=== PATIENT | male | born 1935 | race Two or more races ===

== ENCOUNTER 2019-04-25 06:59 | Emergency (ER) | payer MEDICARE, MEDICAID ==
[~2019-04-25] VITALS: Ht 180.3 cm; Wt 70.3 kg
[2019-04-25] MEDS ORDERED: LIDOCAINE 2% JEL UROJET 10 ML MM ONE ×4 (07:02→08:30)
--- NOTE | 2019-04-25 07:20 | NUR ---
[facility] FROM [facility] FOR EVALUATION OF BLOOD IN THE F/C. PT REPORTED HE HAS F/C IN AT ALL TIME DUE TO CHRONIC URINARY RETENTION. HE ENDORSED THAT THE F/C WAS CHANGED AT THE FACILITY YESTERDAY. PT CURRENTLY W/ C/O LOWER ABD PAIN AND INABILITY TO URINATE. VS OBTAINED. WILL CONT TO MONITOR.
[2019-04-25] MEDS ORDERED: MORPHINE SULFATE INJ 4 MG/ML DISP.SYRIN ONE (07:23)
[2019-04-25] MEDS ORDERED: ONDANSETRON HCL/PF 4 MG/2 ML VIAL ONE (07:24)
[2019-04-25] MEDS ORDERED: MORPHINE SULFATE INJ 2 MG/ML DISP.SYRIN IV ONE (07:30)
[2019-04-25] MEDS ORDERED: ONDANSETRON HCL/PF 4 MG/2 ML VIAL IVP ONE (07:30)
--- NOTE | 2019-04-25 07:33 | NUR ---
Assumed care. Report given by Kenny RN. Patient is awake, alert, crying, screaming noted. Nurse at the bedside. Non-successful christiansen insertion with minimal bleeding noted on the site. Pain medication administered after checking allergies. Patient Remians comfrotable at the moment. will continue to monitor the patient.
[2019-04-25 07:34] LABS: BASOPHILS # (AUTO) 0.1 /CMM (0.0-0.2); BASOPHILS % (AUTO) 1.1 % (0.0-2.0); EOSINOPHILS % (AUTO) 0.3 % (0.0-6.0); HEMATOCRIT 39 % (39-51); HEMOGLOBIN 12.3 g/dL (13.5-17.5); LYMPHOCYTES % (AUTO) 8.9 % (20.0-44.0); MEAN CORPUSCULAR HGB CONC 32 g/dl (31.0-36.0); MEAN CORPUSCULAR VOLUME 89 fL (80-96); MONOCYTES # (AUTO) 0.4 /CMM (0.1-1.30); MONOCYTES % (AUTO) 3.2 % (2.0-12.0); NEUTROPHILS % (AUTO) 86.5 % (43.0-81.0); PLATELET COUNT (AUTO) 301 /CMM (150-450); RED BLOOD CELL COUNT(AUTO) 4.35 MIL/uL (4.5-6.0); WHITE BLOOD COUNT (AUTO) 11.6 K/uL (4.3-11.0)
[2019-04-25 07:40] LABS: CALCIUM, SERUM 8.9 mg/dL (8.5-10.1); CREATININE 1.2 mg/dL (0.6-1.3); POTASSIUM 3.8 mmol/L (3.5-5.1)
[2019-04-25] MEDS ORDERED: LORAZEPAM INJ 2 MG/ML VIAL IV ONE (08:00)
[2019-04-25] MEDS ORDERED: LORAZEPAM INJ 2 MG/ML VIAL ONE (08:04)
--- NOTE | 2019-04-25 08:12 | NUR ---
patient awake and alert noted pain 6/10. no facial grimacing, screaming or crying at the moment. patient is able to make needs known. Bean cathether procedure explained to the patient and patient agreed. Kept clean, dry and comfortable.
--- NOTE | 2019-04-25 08:39 | NUR ---
Patient prepped for christiansen cath noted sterile technique. urine specimen obtained and sent to the lab. Patient tolerated the procedure well no screaming, crying or yelling noted. patient remains comfortable.
[2019-04-25 08:48] LABS: APPEARANCE,URINE CLOUDY (CLEAR); COLOR,URINE ORANGE (YELLOW)
[2019-04-25 08:53] LABS: BILIRUBIN,URINE Negative (NEGATIVE); BLOOD, URINE Large Ery/uL (NEGATIVE); KETONES,URINE Negative (NEGATIVE); LEUKOCYTE ESTERASE ,URINE Trace (NEGATIVE); NITRITE, URINE Negative (NEGATIVE); PH,URINE 8.5 (5.0-8.0); PROTEIN,URINE 100 mg/dl (NEGATIVE); UGLUCOSE Negative (NEGATIVE)
[2019-04-25 08:54] LABS: BACTERIA,URINE Few /HPF (None Seen); RBC,URINE TOO NUMEROUS TO COUN /HPF (0-2); SQUAMOUS EPITHELIAL CELL,UR None Seen /HPF (None Seen)
[2019-04-25] MEDS ORDERED: IV NS 0.9% 1,000 ML BAG IV ONE (09:00)
--- NOTE | 2019-04-25 09:04 | NUR ---
Patient asleep but arousable. Started IVF on right AC. No edema noted infusing well.
--- NOTE | 2019-04-25 10:59 | NUR ---
CALLED DR. AKHTAR [phone] PAGED. WILL CALL US BACK.
--- NOTE | 2019-04-25 10:59 | NUR ---
patient awake. noted with bright red urine on the christiansen bag. Dr. ivy aware and family at bedside talking to dr. ivy.
--- NOTE | 2019-04-25 11:42 | NUR ---
Noted bright red out in the the елена Packer aware ok to flush with saline noted able to pulled back the plunger flushed with 25 ml saline
--- NOTE | 2019-04-25 13:53 | NUR ---
Patient asleep but arousable. Awake aler and oriented. BS recheck
--- NOTE | 2019-04-25 15:20 | NUR ---
PT ACCEPTED AT [facility] BEING TRANSPORTED TO THEIR ED [facility]ANCE ETA 1630. ACCEPTED BY DR PARIKH. NUMBER FOR REPORT
--- NOTE | 2019-04-25 15:46 | NUR ---
Patient okay to eat per Dr. Roach.
--- NOTE | 2019-04-25 16:45 | NUR ---
Patient trasfer via BLS 81 patients vitals stable non distress
--- NOTE | 2019-04-25 16:45 | NUR ---
Patient total out put 1300 urine bright red small clots
--- NOTE | 2019-04-25 16:51 | NUR ---
Report given to Adela Torres Rn [facility]
[2019-04-25 16:54] VITALS: BP 113/67
== END 2019-04-25 17:15 | disposition short-term general hospital (02) ==
LOC: ER 06:59
DX: R33.9 Retention of urine, unspecified (principal); R31.9 Hematuria, unspecified; N40.0 Benign prostatic hyperplasia without lower urinary tract symptoms; E11.9 Type 2 diabetes mellitus without complications; I10 Essential (primary) hypertension; E78.5 Hyperlipidemia, unspecified; F41.9 Anxiety disorder, unspecified
CPT/HCPCS: 36415; 51702; 80048; 81001; 82962; 85025; 85730 ×2; 96374; 96375; 99285; J2060; J2270; J2405; J3490 ×2; J7030 ×3; 81000-TC